=== PATIENT | male | born 1965 | race Caucasian/White ===

== ENCOUNTER → 2016-12-17 | Day surgery (SDC) | payer OTHER ==
[~2016-12-17] VITALS: Ht 182.9 cm; Wt 90.7 kg
[~2016-12-17] MED LIST: ANTIVERT25 MG PO; REGLAN10 M1 PO
--- NOTE | 2016-12-21 08:22 | Operative Report ---
Operative/Inv Procedure Report Surgery Date: 12/17/16 Name of Procedure: Open anterior mesh repair of recurrent left inguinal hernia Pre-Operative Diagnosis: Recurrent left inguinal hernia Post-Operative Diagnosis: Same, medial Estimated Blood Loss: scant Surgeon/Florist'S Decorator: ROGER ANDERSON,KINZA Martin Anesthesia: general endotracheal tube Operative/Procedure Note Note: Patient was placed on the OR table in the supine position. After successful induction of general anesthesia, another timeout was done, antibiotics given, the abdomen was clipped prepped and draped in the usual sterile fashion. Using the palpable iliac crest and pubic tubercle as landmarks named an oblique left inguinal incision parallel and slightly above the inguinal ligament about 6 cm long infiltrated local anesthetic first made an incision with a 15 blade and deepened it with cautery through the dermis and superficial subcutaneous layer identified superficial epigastric vessels slightly laterally tied and divided them with 3-0 Vicryl suture and continued to deepen the incision and clear off the external oblique aponeurosis laterally to the iliac crest and medially to the superficial ring more local anesthetic was injected into the inguinal canal and then in the direction of its fibers the external oblique was sharply incised and care to not injure the underlying ilioinguinal nerve it was right there, bluntly we developed the space of the inguinal canal he got a sense that he could feel the mesh it was a medial recurrence the deep ring was intact we will to dissect bluntly the cord structures entirely off before encircling it with a Barron drain continued to clear off the anatomic boundaries for our repair including the rectus fascia shelving edge of the inguinal ligament the oblique fascia there was some preperitoneal fat as well that we reduced and imbricated the medial defect with a few sutures of 3-0 Vicryl lightly superficially on top just to hold it back so that it wouldn't flop in the way while we inserted the mesh. Then we took the probe site operations manager Velcro mesh folded anchored it medially with a 2 cm overlap over the pubic tubercle especially because it's a medial recurrence, with 2-0 Prolene suture and continued that suture inferior and laterally incorporating the edge of the mesh to the shelving edge of Nathan's ligament continued it under the cord structures laterally just past the pulse. Then the rest of the mesh was tacked down medially superiorly and laterally with multiple interrupted 2-0 Vicryl sutures paying care not to injure the iliohypogastric nerve superiorly, also in this area there was sharp retraction superiorly of the external oblique aponeurosis to get some retraction as you tacked down the mesh to the internal oblique aponeurosis. I also added some interrupted 2-0 Prolene sutures medially and especially around the keyhole to make it a little more snug but not too tight around the cord structures re- creating the deep ring of note unfolding this Velcro mesh and get it getting it situated around the cord structures with a flap overlapping superiorly and medially is tedious. After this the area was irrigated checked for any bleeding there was none I feel the genitofemoral ilioinguinal and iliohypogastric nerves were preserved as was the blood supply to the spermatic cord including the vas, we then closed in layers first the external oblique aponeurosis, covering the mesh re-creating the superficial ring and then reapproximating Palak's fascia with interrupted 3-0 Vicryl sutures a few more subdermal and a running subcuticular 4-0 Biosyn suture for the skin itself followed by Mastisol Steri- Strips Telfa and Tegaderm. EBL minimal lap and sponge counts correct wound expectancy clean IV fluids crystalloid complications none patient tolerated the procedure well was awakened extubated returned to the recovery room in satisfactory condition.
== END ==
LOC: STS 01:34
DX: K40.91 Unilateral inguinal hernia, without obstruction or gangrene, recurrent (principal)
CPT/HCPCS: C1781; J0131; J0690; J2250